=== PATIENT | female | born 1960 | race Caucasian/White ===

== ENCOUNTER → 2024-04-04 14:36 | Outpatient (REF) | payer BC, SELFPAY | LOC: WDC 14:36 | PROVIDERS: ATTENDING PHYSICIAN Obstetrics & Gynecology Gynecology; FAMILY PHYSICIAN Family Medicine | DX: Z12.31 Encounter for screening mammogram for malignant neoplasm of breast (principal) | CPT/HCPCS: 77063; 77067 ==

== ENCOUNTER 2025-03-21 06:58 | Emergency (ER) | payer BC, SELFPAY ==
[2025-03-21 07:03] VITALS: BP 138/109
--- NOTE | 2025-03-21 07:29 | ED.GENMED ---
History of Present Illness
General
Chief Complaint: Abdominal Symptoms
Source: patient and spouse
Exam Limitations: none
Time Seen by Provider: 03/21/25 07:12
Nursing documentation reviewed up to this point in time: agreed with
History of Present Illness
History of Present Illness:
64-year-old female with past medical history as noted presents to the ER for evaluation of abdominal pain with nausea/vomiting/diarrhea. Patient reports onset of symptoms yesterday evening and they have been consistent since that time. She reports
a diffuse pain and bloating sensation. Associated with profuse nausea and vomiting, dry heaving. She said she had some diarrhea last night. She denies any fever or chills. Denies any urinary symptoms. Denies any vaginal bleeding. Denies any
chest pain or shortness of breath or any other complaints. She says that she had milk and cereal last night and is concerned that maybe the milk could have been bad. She has prior surgical history of salpingectomy, , partial colon
resection for diverticulitis.
Past History
Past History
ED Past Medical History: Hypercholesterolemia, Hypothyroidism and Other (2 diverticulitis, ovarian cysts, blind in the left eye)
ED Past Surgical History: Other (History of breast cysts removed, ovarian cyst removed, left tube removed from a tubal )
Social History
Tobacco: Non-smoker
Alcohol: Occasional
Personal:
Living: with family
Employment: Employed
Family History
Family History: Diabetes
Review of Systems
Review of Systems
All Other Systems: ROS reviewed and negative except as documented in HPI and ROS
Constitutional: Denies fever or chills
Respiratory: Denies trouble breathing
Cardiac: Denies chest pain
ABD/GI: Reports abdominal pain, nausea, vomiting and diarrhea
: Denies dysuria, flank pain or bleeding
Musculoskeletal: Denies neck pain or back pain
Neurological: Denies dizzy or headache
Phy Exam
Physical Exam
Physical Exam:
General: Awake, alert, lying in bed appears uncomfortable occasionally vomiting into emesis bag
Head: Normocephalic, atraumatic
Eyes: Conjunctiva normal, sclera anicteric
Throat: Airway intact, handling secretions
Neck: Trachea midline, supple without meningismus
Lungs: Clear to auscultation bilaterally, no wheezing, rales, rhonchi
Heart: Regular rate and rhythm, no murmurs, gallops, or rubs
Abd: Soft, mildly distended, diffusely tender to palpation
Neuro: No gross deficits
Skin: no rash
Extremities: Warm and well-perfused
Scores
Heart Failure Risk
Heart Failure Risk Score: Not Applicable
Heart Score for Chest Pain Patients
STEMI patient?: Not applicable
Withdrawal Assessment of Alcohol
Withdrawal Assessment Completed?: Not applicable
Course
Orders/Labs/Results
Orders:
Orders
03/21/25 07:27
Electrocardiogram (*1) Urgent
Reason for Study: Abdominal Pain
CT Abd/pelvis W Iv Cont Urgent
Comment:
Reason For Exam: N/V, abd pain, diffuse tenderness and distention
EKG- Treatment ONCE
Urinalysis Reflex To Culture Urgent
Morphine Sulfate 4 mg IV NOW STA
Ondansetron Injectable [Zofran] 4 mg IV NOW STA
03/21/25 07:28
0.9% Sodium Chloride 1000 ml [Nss] 1,000 ml IV BOLUS
03/21/25 08:00
COVID-19 Antigen Urgent
Source: Nasal Swab
Complete Blood Count/With Diff Urgent
Comprehensive Metabolic Panel Urgent
Lipase Urgent
Influenza A+B Rapid Molecular Urgent
ROB Source: Nasal Swab
Specimen Description:
Abnormal Lab Results
03/21/25
08:00
Absolute Neuts (auto) 7.9 H 10^3/uL
(1.4-6.5)
Absolute Lymphs (auto) 0.8 L 10^3/uL
(1.2-3.4)
Neutrophils % 87.6 H %
(42.2-75.2)
Lymphocytes % 9.1 L %
(20.5-51.1)
Glucose 159 H mg/dl
(70-99)
Calcium 10.3 H mg/dl
(8.4-10.2)
03/21/25 08:00
03/21/25 08:00
Vital Signs
Initial and Last Documented VS:
Initial Vital Signs
Temp Pulse Resp BP Pulse Ox
36.6 C 84 18 138/109 98
03/21/25 07:03 03/21/25 07:03 03/21/25 07:03 03/21/25 07:03 03/21/25 07:03
Last Documented Vital Signs
Temp Pulse Resp BP Pulse Ox
36.6 C 65 15 123/71 96
03/21/25 07:03 03/21/25 08:00 03/21/25 08:00 03/21/25 08:00 03/21/25 08:00
MDM/Problems Addressed
Differential Diagnosis Includes:
Food poisoning, gastroenteritis, bowel obstruction, pancreatitis, cholelithiasis/cholecystitis
MDM/Problems Addressed:
64-year-old female presents for evaluation of nausea, vomiting, diarrhea and abdominal pain constant since last night. Vitals and exam as above. Will place an IV send labs including a CBC and a CMP, lipase. Check EKG. Will send for a CT abdomen
pelvis. Provide fluids, antiemetic, pain control. Monitor closely reassess after the above.
Labs reviewed: CBC and CMP no clinically significant abnormalities. COVID and flu negative. CT shows n bowel obstruction, some fluid filled loops of small bowel in the left abdomen which are nonspecific. No other acute abnormalities. Suspect
gastroenteritis. Patient feeling much better after ED treatment. Tolerating p.o. Vital signs stable. She is stable for discharge will prescribe Zofran as needed. Advised regarding bland diet. Provided copy of CT report and discussed need for
PCP follow-up on incidental findings. Patient comfortable with this plan. All questions answered.
*Radiology
Radiology exam reviewed: radiology read reviewed
*Pulse Oximetry
Patient hypoxic: no
*Critical Care Note
Total Time (30-74mins, 75-104mins- exclusive of procedures): Not Applicable
Data Reviewed
Source: patient, records and spouse
ED Attending Note
-
Portions of this chart may have been created with voice recognition software.� Occasional wrong word or��sound alike� substitutions may have occurred due to the inherent limitations of voice recognition software.
Discharge Plan
Departure
Patient Disposition: Home (Routine Discharge)
Date of Disposition: 03/21/25
Time of Disposition: 10:34
Patient with high blood pressure during this ER visit?: Yes
Discharge Problem:
Gastroenteritis
Instructions: Viral gastroenteritis in adults
Prescriptions:
New
ondansetron 4 mg tablet,disintegrating
4 mg PO Q8H PRN (Reason: nausea and vomiting) Qty: 20 0RF
No Action
multivitamin [Daily Multiple] 1 EACH tablet
1 ea PO DAILY
Ginseng
1 dose PO DAILY
levothyroxine 100 MCG tablet
100 mcg PO DAILY AT 0700
Referrals:
Susan Ross PA [Family Provider] - Follow up in 2-3 days
Activity Restrictions/Additional Instructions:
Thank you for visiting the Emergency Department at [facility].
1. Please schedule a follow up appointment as directed. Call first thing tomorrow morning to make an appointment.
2. If indicated, please take your medications as instructed and indicated on discharge paperwork.
3. If any of your symptoms do not improve, or persist, or become more severe within 6-12 hours, please return to the emergency department for further care.
4. Please return to the emergency department if you develop a headache, neck pain/stiffness, fever greater than 100.4F, chest pain, shortness of breath, persistent nausea, vomiting, slurred speech, difficulty walking, numbness/tingling, weakness,
signs of infection or any other symptoms that are worrisome to you.
Please call [phone] if you have any questions.
Interventions
Interventions:
*Risk Screen - Suicide Last Done: 03/21/25 07:03
*General Assessment Last Done: 03/21/25 07:03
*Neglect/Abuse Screening Last Done: 03/21/25 07:03
*ED- Fall Risk Assessment Last Done: 03/21/25 07:46
*ED COVID-19 Vaccine History Last Done: 03/21/25 07:46
IV-[place]-Ykoxiqyxps Assessment Last Done: 03/21/25 07:46
Discharge Date and Time
Print Language: ICELANDIC
[2025-03-21 07:40] VITALS: BP 117/78
[2025-03-21 07:46] VITALS: BMI 30.7
[2025-03-21 08:00] VITALS: BP 123/71
[2025-03-21] MEDS: NSS 1000 IV (08:00)
[2025-03-21] MEDS: MORPHINE SULFATE 4 MG IV (08:01)
[2025-03-21] MEDS: ZOFRAN 4 MG IV (08:01)
[2025-03-21 08:21] LABS: % Basophils 0.2 % (0-2); % Immature Granulocytes 0.2 % (0-0.5); % Lymphocytes 9.1 % (20.5-51.1); % Monocytes 2.9 % (1.7-9.3); % Neutrophils 87.6 % (42.2-75.2); Absolute Lymphocytes 0.8 10^3/uL (1.2-3.4); Absolute Monocytes 0.3 10^3/uL (0.1-0.6); Absolute Neutrophils 7.9 10^3/uL (1.4-6.5); Hematocrit 44.1 % (37.0-47.0); Hemoglobin 15.7 g/dL (12.0-16.0); Mean Corp Hgb Conc. 35.6 g/dL (33.0-37.0); Mean Platelet Volume 9.7 fL (7.4-10.4); Nucleated Red Blood Cells % 0 %; Platelet Count 266 10^3/uL (130-400); Red Blood Cell Count 5.07 10^6/uL (4.20-5.40); Red Cell Dist. Width 14.4 % (11.5-14.5)
[2025-03-21 08:30] LABS: COVID-19 Antigen Negative (Negative)
[2025-03-21 08:31] LABS: ALT (SGPT) 30 U/L (0-35); AST (SGOT) 29 U/L (14-36); Albumin 4.3 g/dl (3.5-5.0); Alkaline Phosphatase 71 U/L (38-126); Blood Urea Nitrogen 15 mg/dl (7-17); Calcium 10.3 mg/dl (8.4-10.2); Carbon Dioxide 27 mmol/L (22-30); Chloride 106 mmol/L (98-107); Estimated Creatinine Clearance 70 ml/min; Glucose 159 mg/dl (70-99); Lipase 125 U/L (23-300); Potassium 3.9 mmol/L (3.5-5.1); Sodium 144 mmol/L (135-145); Total Bilirubin 0.6 mg/dl (0.2-1.3); Total Protein 7.5 g/dl (6.3-8.2); eGFR > 60.00
[2025-03-21 09:40] VITALS: BP 105/70
[2025-03-21 10:00] VITALS: BP 107/68
[2025-03-21 11:00] VITALS: BP 102/62
== END 2025-03-21 11:14 | disposition home or self-care (01) ==
LOC: EMR 06:58
PROVIDERS: EMERGENCY PHYSICIAN Emergency Medicine; FAMILY PHYSICIAN Family Medicine
DX: K52.9 Noninfective gastroenteritis and colitis, unspecified (principal); E78.00 Pure hypercholesterolemia, unspecified; E03.9 Hypothyroidism, unspecified; Z11.52 Encounter for screening for COVID-19
CPT/HCPCS: 96374; 96375; 96361; 99284; 74177; 80053; 83690; 85025; 87502; 87811; 93005; Q9967

== ENCOUNTER → 2025-04-10 08:07 | Outpatient (REF) | payer BC, SELFPAY | LOC: HWRAD 08:07 | PROVIDERS: ATTENDING PHYSICIAN Family Medicine | DX: N30.00 Acute cystitis without hematuria (principal) | CPT/HCPCS: 76770 ==